=== PATIENT | male | born 2000 | race Two or more races ===

== ENCOUNTER 2018-05-14 11:56 | Emergency (ER) | payer OTHER ==
[~2018-05-14] VITALS: Ht 170.2 cm; Wt 70.3 kg
[2018-05-14 12:12] VITALS: BP 144/66
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
== END 2018-05-14 13:22 | disposition home or self-care (01) ==
LOC: ER 11:56
DX: S60.011A Contusion of right thumb without damage to nail, initial encounter (principal); S10.93XA Contusion of unspecified part of neck, initial encounter; M54.5 Low back pain; V43.62XA Car passenger injured in collision with other type car in traffic accident, initial encounter; Y93.89 Activity, other specified; Y92.410 Unspecified street and highway as the place of occurrence of the external cause; Y99.8 Other external cause status
CPT/HCPCS: 72040; 73130; 99284